=== PATIENT | male | born 1975 | race Two or more races ===

== ENCOUNTER 2023-09-21 19:42 | Emergency (ER) | payer SELFPAY ==
[~2023-09-21] VITALS: Ht 180.3 cm; Wt 86.5 kg
[2023-09-21 20:16] VITALS: BP 105/70; PULSE 102; RESP 18; O2SAT 99
== END 2023-09-22 01:18 | disposition left against medical advice (07) ==
LOC: ER 19:42
DX: R10.11 Right upper quadrant pain (principal); R10.12 Left upper quadrant pain; R11.0 Nausea; Z53.21 Procedure and treatment not carried out due to patient leaving prior to being seen by health care provider